=== PATIENT | male | born 1940 | race Caucasian/White ===

== ENCOUNTER 2024-10-14 23:46 | Inpatient (IN) | payer BC ==
[2024-10-15 01:27] LABS: BASO % 0.3 % (0-2.0); EOS % 1.9 % (0-4.5); HEMATOCRIT 48.2 % (35.4-49); HEMOGLOBIN 16.4 GM/dL (11.7-16.9); LYMPH % 21.8 % (8-40); MCH 28.9 pg (25.7-33.7); MCHC 33.9 g/dl (32.0-35.9); MEAN PLT VOLUME 9.2 fl (7.5-11.1); MONO % 15.1 % (3.8-10.2); NEUT % 60.9 % (42.8-82.8); PLATELET COUNT 183 10^3/uL (134-434); RBC 5.67 M/mm3 (4.00-5.60); WHITE BLOOD COUNT 7.4 K/mm3 (4.0-10.0)
[2024-10-15 01:53] LABS: POTASSIUM 4.2 mmol/L (3.5-5.1)
[2024-10-15 01:55] LABS: CALCIUM 8.9 mg/dL (8.5-10.1)
[2024-10-15 01:56] LABS: ALBUMIN 3.1 g/dl (3.4-5.0); BLOOD UREA NITROGEN 63.4 mg/dL (7-18)
[2024-10-15 01:59] LABS: CREATININE 2.3 mg/dL (0.55-1.3); INR 2.03 (0.83-1.09); PROTHROMBIN TIME (PATIENT) 22.3 SEC (9.7-13.0)
[2024-10-15 02:00] LABS: BILIRUBIN,TOTAL 0.8 mg/dL (0.2-1); TOT PROT 7.6 g/dl (6.4-8.2)
[2024-10-15 02:01] LABS: ACTIVATED PTT 34.5 SECONDS (25.2-36.5)
[2024-10-15 02:24] LABS: EPI CELLS 14 /uL (0-25.1); HYALINE CASTS 0 /uL (0-3.1); PH,URINE 5.5 (5.0-8.0); URINE APPEARANCE TURBID; URINE BACTERIA 183 /uL (0-1359); URINE BILIRUBIN NEGATIVE (NEGATIVE); URINE COLOR YELLOW; URINE GLUCOSE (UA) 3+ (NEGATIVE); URINE KETONE TRACE (NEGATIVE); URINE LEUK ESTERASE 3+ (NEGATIVE); URINE NITRITE NEGATIVE (NEGATIVE); URINE PROTEIN TRACE (NEGATIVE); URINE RBC 49 /uL (0-23.9); URINE UROBILINOGEN 0.2 mg/dL (0.2-1.0); URINE WBC 5431 /uL (0-25.8)
[2024-10-15] MEDS ORDERED: cefTRIAXone SODIUM 1 GM VIAL ONE (02:39)
[2024-10-15] MEDS: CEFTRIAXONE 1,000 MG in DEXTROSE 5%-WATER - 50 ML IVPB ONE (02:48)
[2024-10-15 03:52] LABS: YEAST FEW (NEGATIVE)
[2024-10-15 04:50] VITALS: BMI 28.9
[2024-10-15 09:16] LABS: CALCIUM 8.8 mg/dl (8.5-10.1); CREATININE 2.1 mg/dl (0.6-1.3); MAGNESIUM 2.4 mg/dL (1.8-2.4); PHOSPHOROUS 3.3 (2.5-4.9); POTASSIUM 4.2 mmol/L (3.5-5.1)
[2024-10-15 10:47] LABS: BASO % 1.5 % (0-2.0); EOS % 1.4 % (0-4.5); HEMATOCRIT 46.4 % (35.4-49); HEMOGLOBIN 15.2 GM/dL (11.7-16.9); MCH 28.3 pg (25.7-33.7); MCHC 32.7 g/dl (32.0-35.9); MEAN CELL VOLUME 86.5 fl (80-96); MEAN PLT VOLUME 9.7 fl (7.5-11.1); MONO % 14.8 % (3.8-10.2); NEUT % 60.3 % (42.8-82.8); PLATELET COUNT 185 10^3/uL (134-434); RBC 5.36 M/mm3 (4.00-5.60); RDW 13.9 % (11.9-15.9)
[2024-10-15] MEDS: CEFTRIAXONE 1 GM in DEXTROSE 5%-WATER - 50 ML IVPB SCH (11:35)
[2024-10-15] MEDS: PANTOPRAZOLE 40 MG TABLET PO SCH (13:40)
[2024-10-15] MEDS: valACYclovir HCL 500 MG TABLET (FP) PO SCH (13:40)
[2024-10-15] MEDS: DEXTROSE 5%-0.45% SALINE 1,000 ML IV SCH (13:40)
[2024-10-15] MEDS: INSULIN ASPART SLIDING SCALE (NOVOLOG) 1 VIAL SQ SCH (13:48)
[2024-10-15] MEDS: RIVAROXABAN 20 MG TABLET PO SCH (18:23)
[2024-10-15] MEDS: ATORVASTATIN CA 20 MG TABLET (FP) PO SCH (21:19)
[2024-10-15] MEDS: INSULIN (LEVEMIR) 100 UNITS/ML UNITS SQ SCH (21:19)
[2024-10-16] MEDS: DEXTROSE 5%-0.45% SALINE 1,000 ML IV SCH (03:18)
[2024-10-16] MEDS: traMADol HCL 50 MG TABLET PO ONE (04:02)
[2024-10-16] MEDS ORDERED: TAMSULOSIN HCL 0.4 MG CAP PO SCH (08:30)
[2024-10-16] MEDS: FINASTERIDE 5 MG TABLET (FP) PO SCH (09:14)
[2024-10-16] MEDS: TAMSULOSIN HCL 0.4 MG CAP PO SCH (09:15)
[2024-10-16] MEDS: amLODIPine BESYLATE 5 MG TABLET (FP) PO SCH (09:15)
[2024-10-16 10:29] LABS: ALBUMIN 3.2 g/dl (3.4-5.0); ALK PHOS 71 U/L (45-117); ANION GAP 11 mmol/L (4-13); BILIRUBIN,TOTAL 0.5 mg/dl (0.2-1); CALCIUM 8.7 mg/dl (8.5-10.1); CHLORIDE 98 mmol/L (98-107); CHOLESTEROL 131 mg/dL (50-200); CO2 25 mmol/L (21-32); CREATININE 1.9 mg/dl (0.6-1.3); GLUCOSE,RANDOM 152 mg/dl (74-106); HDL CHOLESTEROL 24 mg/dL (40-60); LDL CHOLESTEROL (ONLY DFH) 80 mg/dL (5-100); POTASSIUM 4.2 mmol/L (3.5-5.1); SGOT/AST 16 U/L (15-37); SGPT/ALT 12 U/L (7-52); SODIUM 134 mmol/L (136-145); TOT PROT 6.5 g/dl (6.4-8.2)
[2024-10-16 11:02] LABS: BASO % 1.8 % (0-2.0); EOS % 2.6 % (0-4.5); HEMATOCRIT 47.6 % (35.4-49); HEMOGLOBIN 15.7 GM/dL (11.7-16.9); LYMPH % 15.4 % (8-40); MCH 28.3 pg (25.7-33.7); MCHC 32.9 g/dl (32.0-35.9); MEAN CELL VOLUME 86.1 fl (80-96); MEAN PLT VOLUME 9.6 fl (7.5-11.1); MONO % 10.4 % (3.8-10.2); NEUT % 69.8 % (42.8-82.8); PLATELET COUNT 191 10^3/uL (134-434); RBC 5.52 M/mm3 (4.00-5.60); RDW 13.9 % (11.9-15.9); WHITE BLOOD COUNT 6.8 K/mm3 (4.0-10.0)
[2024-10-16] MEDS: valACYclovir HCL 500 MG TABLET (FP) PO SCH (14:15)
[2024-10-16] MEDS: INSULIN (LEVEMIR) 100 UNITS/ML UNITS SQ SCH (21:25)
[2024-10-16] MEDS: traMADol HCL 50 MG TABLET PO PRN (21:26)
[2024-10-17] MEDS: ACETAMINOPHEN 325 MG TABLET (FP) PO PRN (06:53)
[2024-10-17 07:55] LABS: CALCIUM 8.4 mg/dl (8.5-10.1); POTASSIUM 4.6 mmol/L (3.5-5.1)
[2024-10-17] MEDS: valACYclovir HCL 500 MG TABLET (FP) PO SCH (09:44)
[2024-10-17] MEDS: INSULIN (LEVEMIR) 100 UNITS/ML UNITS SQ ONE (18:29)
[2024-10-17] MEDS ORDERED: INSULIN ASPART SLIDING SCALE (NOVOLOG) 1 VIAL SQ ONE (22:03)
[2024-10-17] MEDS: INSULIN (LEVEMIR) 100 UNITS/ML UNITS SQ SCH (22:14)
[2024-10-18] MEDS ORDERED: INSULIN ASPART SLIDING SCALE (NOVOLOG) 1 VIAL SQ ONE (06:20)
[2024-10-18] MEDS ORDERED: INSULIN (LEVEMIR) 100 UNITS/ML UNITS SQ SCH (06:59)
[2024-10-18] MEDS: INSULIN (LEVEMIR) 100 UNITS/ML UNITS SQ SCH (08:13)
[2024-10-18 08:47] LABS: CALCIUM 8.4 mg/dl (8.5-10.1); CREATININE 1.7 mg/dl (0.6-1.3); POTASSIUM 4.7 mmol/L (3.5-5.1)
[2024-10-18 11:03] LABS: ABSOLUTE IMMATURE GRANULOCYTES 0.03 x10^3/uL (0.0-0.031); BASOPHILS # 0.03 x10^3/uL (0.01-0.08); EOSINOPHIL % 1.2 % (0.8-7.0); EOSINOPHILS # 0.08 x10^3/uL (0.04-0.54); HEMATOCRIT 46.3 % (40.1-51.0); HEMOGLOBIN 15.5 g/dL (13.7-17.5); MCHC 33.5 g/dl (32.3-36.5); MEAN CELL VOLUME 86.1 fl (79.0-92.2); MEAN PLT VOLUME 11.3 fl (9.4-12.4); MONOCYTE # 0.65 x10^3/uL (0.30-0.82); MONOCYTE % 9.4 % (5.3-12.2); PLATELET COUNT # 216 x10^3/uL (163-337); RDW 12.7 % (12.6-16.6)
[2024-10-18] MEDS: INSULIN ASPART SLIDING SCALE (NOVOLOG) 1 VIAL SQ SCH (17:59)
[2024-10-18] MEDS: DEXTROSE 5%-0.45% SALINE 1,000 ML IV SCH (19:15)
[2024-10-19 08:21] LABS: CALCIUM 8.6 mg/dl (8.5-10.1); CREATININE 1.6 mg/dl (0.6-1.3); POTASSIUM 4.2 mmol/L (3.5-5.1)
[2024-10-20 07:41] LABS: ABSOLUTE IMMATURE GRANULOCYTES 0.03 x10^3/uL (0.0-0.031); BASOPHILS # 0.03 x10^3/uL (0.01-0.08); EOSINOPHIL % 1.3 % (0.8-7.0); EOSINOPHILS # 0.12 x10^3/uL (0.04-0.54); HEMATOCRIT 42.9 % (40.1-51.0); HEMOGLOBIN 14.3 g/dL (13.7-17.5); MCHC 33.3 g/dl (32.3-36.5); MEAN CELL VOLUME 85.8 fl (79.0-92.2); MEAN PLT VOLUME 9.9 fl (9.4-12.4); MONOCYTE # 0.89 x10^3/uL (0.30-0.82); MONOCYTE % 9.7 % (5.3-12.2); PLATELET COUNT # 253 x10^3/uL (163-337); RDW 13.2 % (12.6-16.6)
[2024-10-20 08:04] LABS: CALCIUM 8.7 mg/dl (8.5-10.1); CREATININE 1.5 mg/dl (0.6-1.3); POTASSIUM 4.7 mmol/L (3.5-5.1)
[2024-10-20 10:45] VITALS: BP 120/61; PULSE 97; RESP 17; TEMP 97.7
== END 2024-10-20 11:46 | disposition home or self-care (01) | DRG 683 ==
LOC: FER 23:46 → FM/S 10-15 03:00
PROVIDERS: ADMIT Internal Medicine; ATTEND Internal Medicine
DX: N17.9 Acute kidney failure, unspecified (principal); I13.0 Hypertensive heart and chronic kidney disease with heart failure and stage 1 through stage 4 chronic kidney disease, or unspecified chronic kidney disease; N39.0 Urinary tract infection, site not specified; I10 Essential (primary) hypertension; E11.9 Type 2 diabetes mellitus without complications; F03.90 Unspecified dementia, unspecified severity, without behavioral disturbance, psychotic disturbance, mood disturbance, and anxiety; R55 Syncope and collapse; N40.0 Benign prostatic hyperplasia without lower urinary tract symptoms; E86.0 Dehydration; L89.151 Pressure ulcer of sacral region, stage 1; I50.9 Heart failure, unspecified; B02.9 Zoster without complications; N18.9 Chronic kidney disease, unspecified; W19.XXXA Unspecified fall, initial encounter; Y93.89 Activity, other specified; Y92.008 Other place in unspecified non-institutional (private) residence as the place of occurrence of the external cause; Y99.8 Other external cause status; E11.65 Type 2 diabetes mellitus with hyperglycemia
CPT/HCPCS: 36415; 70450-TC; 71045-TC-FY; 72100-TC-FY; 72125-TC; 76775-TC; 76856-TC; 80048; 80053; 80061; 81003; 81015; 82550; 82962; 83036; 83735; 83880; 84100; 84439; 84443; 84484; 85025; 85610; 85730; 86850; 86900; 86901; 87086; 93005; 93306-TC; 93880-TC; 97116-GP; 97162-GP; 99285-25

== ENCOUNTER 2025-05-19 12:24 | Inpatient (IN) | payer BC, OTHER ==
[2025-05-19 13:29] LABS: ABSOLUTE IMMATURE GRANULOCYTES 0.02 x10^3/uL (0.0-0.031); BASOPHILS # 0.03 x10^3/uL (0.01-0.08); EOSINOPHIL % 0.8 % (0.8-7.0); EOSINOPHILS # 0.07 x10^3/uL (0.04-0.54); MCHC 30.6 g/dl (32.3-36.5); MEAN CELL VOLUME 92.3 fl (79.0-92.2); MEAN PLT VOLUME 11.0 fl (9.4-12.4); MONOCYTE # 0.82 x10^3/uL (0.30-0.82); MONOCYTE % 9.2 % (5.3-12.2); RDW 14.0 % (12.6-16.6)
[2025-05-19 13:56] LABS: ALK PHOS 70.0 U/L (45-117); CO2 25.0 mmol/L (21-32); CREATININE 1.8 mg/dl (0.6-1.3); GLUCOSE,RANDOM 181.0 mg/dl (74-106); SGOT/AST 23.0 U/L (15-37); SGPT/ALT 19.0 U/L (7-52); TOT PROT 7.1 g/dl (6.4-8.2)
[2025-05-19 14:24] LABS: N-TERMINAL BNP 4422.4 pg/mL (0-299.9)
[2025-05-19] MEDS ORDERED: FUROSEMIDE 40 MG/4 ML INJECTABLE VIAL ONE (14:36)
[2025-05-19] MEDS: FUROSEMIDE 40 MG/4 ML INJECTABLE VIAL IVPUSH ONE (14:42)
[2025-05-19 15:53] LABS: HIV INTERPRETATION NEGATIVE (NEGATIVE)
[2025-05-19 15:55] LABS: HCV DIAGNOSTIC IN-HOUSE W/RFLX NON-REACTIVE (NONREACTIVE)
[2025-05-19] MEDS: GABAPENTIN 300 MG CAPSULE PO SCH (16:35)
[2025-05-19] MEDS: INSULIN ASPART SLIDING SCALE (NOVOLOG) 1 VIAL SQ SCH (16:35)
[2025-05-19] MEDS: PANTOPRAZOLE 40 MG TABLET PO SCH (16:45)
[2025-05-19] MEDS: ASPIRIN 81 MG CHEWABLE TABLETS PO ONE (17:54)
[2025-05-19] MEDS: RIVAROXABAN 20 MG TABLET PO SCH (18:05)
[2025-05-19] MEDS: DOCUSATE SODIUM 100 MG CAPSULE (FP) PO SCH (19:57)
[2025-05-19] MEDS: POLYETHYLENE GLYCOL (HEALTHYLAX) 3350 17 GM PACKET PO SCH (19:58)
[2025-05-19 20:24] VITALS: BMI 37.2
[2025-05-19] MEDS: INSULIN GLARGINE (LANTUS) 100 UNITS/ML UNITS SQ SCH (21:40)
[2025-05-19] MEDS: SILVER SULFADIAZINE 1% TOP CREAM 50 GM JAR TP SCH (21:41)
[2025-05-19] MEDS ORDERED: HEPARIN NA (PORCINE) 5,000 UNITS/ML 1ML VIAL SQ SCH (22:00)
[2025-05-20 09:07] LABS: ABSOLUTE IMMATURE GRANULOCYTES 0.03 x10^3/uL (0.0-0.031); BASOPHILS # 0.03 x10^3/uL (0.01-0.08); EOSINOPHIL % 2.0 % (0.8-7.0); EOSINOPHILS # 0.18 x10^3/uL (0.04-0.54); MCHC 29.6 g/dl (32.3-36.5); MEAN CELL VOLUME 95.3 fl (79.0-92.2); MEAN PLT VOLUME 10.5 fl (9.4-12.4); MONOCYTE # 0.86 x10^3/uL (0.30-0.82); MONOCYTE % 9.7 % (5.3-12.2); RDW 14.1 % (12.6-16.6)
[2025-05-20] MEDS: TAMSULOSIN HCL 0.4 MG CAP PO SCH (09:28)
[2025-05-20] MEDS: FUROSEMIDE 40 MG/4 ML INJECTABLE VIAL IVPUSH SCH (09:29)
[2025-05-20] MEDS: ASPIRIN COATED 81 MG TABLET.EC PO SCH (09:29)
[2025-05-20] MEDS: FINASTERIDE 5 MG TABLET (FP) PO SCH (09:29)
[2025-05-20 10:23] LABS: GLUCOSE,RANDOM 103.0 mg/dL (74-106)
[2025-05-20 10:25] LABS: CO2 28.0 mmol/L (21-32)
[2025-05-20 10:29] LABS: CREATININE 1.91 mg/dL (0.55-1.3)
[2025-05-21] MEDS: ALBUTEROL SO4 2.5/IPRATROPIUM 0.5 INH SOL 3 ML VIAL.NEB. NEB PRN (08:30)
[2025-05-21 09:21] LABS: ARTERIAL BLD GAS O2 SATURATION 96.9 % (95-98); ARTERIAL BLOOD GAS BASE EXCESS -0.7 mmol/L (-2-2); ARTERIAL BLOOD GAS PO2 112.0 mmHg (80-100); BG HCT 46.0 % (35.4-49); O2 CONTENT 2.15 % vol
[2025-05-21 09:29] LABS: ALLENS TEST POSITIVE
[2025-05-21 09:32] LABS: ARTERIAL BLOOD GAS PCO2 78.10 mmHg (35-45)
[2025-05-21] MEDS ORDERED: MUPIROCIN 2% TOPICAL OINTMENT FOR DECOLONIZATION NS SCH ×2 (10:00→22:00)
[2025-05-21 12:57] LABS: ABSOLUTE IMMATURE GRANULOCYTES 0.05 x10^3/uL (0.0-0.031); BASOPHILS # 0.02 x10^3/uL (0.01-0.08); EOSINOPHIL % 0.2 % (0.8-7.0); EOSINOPHILS # 0.02 x10^3/uL (0.04-0.54); MCHC 29.1 g/dl (32.3-36.5); MEAN CELL VOLUME 98.1 fl (79.0-92.2); MEAN PLT VOLUME 11.3 fl (9.4-12.4); MONOCYTE # 1.16 x10^3/uL (0.30-0.82); MONOCYTE % 11.3 % (5.3-12.2); RDW 14.0 % (12.6-16.6)
[2025-05-21 13:15] LABS: GLUCOSE,RANDOM 113.0 mg/dL (74-106)
[2025-05-21 13:16] LABS: CO2 29.0 mmol/L (21-32)
[2025-05-21 13:20] LABS: CREATININE 2.22 mg/dL (0.55-1.3)
[2025-05-21] MEDS ORDERED: SODIUM ZIRCONIUM CYCLOSILICATE (LOKELMA) 5 GM PACKET PO SCH (14:00)
[2025-05-21] MEDS: SODIUM ZIRCONIUM CYCLOSILICATE (LOKELMA) 5 GM PACKET PO SCH (14:16)
[2025-05-21 14:49] LABS: ARTERIAL BLD GAS O2 SATURATION 94.3 % (95-98); ARTERIAL BLOOD GAS BASE EXCESS 1.5 mmol/L (-2-2); ARTERIAL BLOOD GAS PCO2 61.40 mmHg (35-45); ARTERIAL BLOOD GAS PO2 79.6 mmHg (80-100); BG HCT 46.0 % (35.4-49); O2 CONTENT 2.07 % vol
[2025-05-21 14:50] LABS: ALLENS TEST POSITIVE
[2025-05-21 14:51] LABS: VENT MODE S/T; VENT RATE 12
[2025-05-21] MEDS ORDERED: ALBUTEROL SO4 0.5 % INH SOLN 2.5 MG/0.5 ML VIAL.NEB. NEB ONE (17:26)
[2025-05-21] MEDS: DEXTROSE 50%-WATER 25 GM/50 ML DISP.SYRIN IVPUSH ONE (17:59)
[2025-05-21] MEDS: CALCIUM GLUCONATE 10% - 1,000 MG/10 ML VIAL IVPUSH ONE (17:59)
[2025-05-21] MEDS ORDERED: PIPERACILLIN/TAZOB 2.25 GM 2.25 GM in DEXTROSE 5%-WATER - 50 ML IVPB SCH (18:45)
[2025-05-21] MEDS: ALBUTEROL SO4 0.5 % INH SOLN 2.5 MG/0.5 ML VIAL.NEB. NEB ONE ×2 (18:59→19:00)
[2025-05-21] MEDS: PIPERACILLIN/TAZOB 2.25 GM 2.25 GM in DEXTROSE 5%-WATER - 50 ML IVPB SCH (19:14)
[2025-05-21] MEDS: DEXTROSE 10%-WATER - 1,000 ML IV SCH ×2 (19:52→21:36)
[2025-05-21] MEDS ORDERED: SUGAMMADEX SODIUM 200 MG/2 ML VIAL ONE (20:17)
[2025-05-21] MEDS ORDERED: ROCURONIUM BROMIDE 50 MG/5 ML SYRINGE ONE ×2 (20:17→20:18)
[2025-05-21] MEDS ORDERED: MIDAZOLAM HCL 2 MG/2 ML SINGLE DOSE VIAL ONE (20:39)
[2025-05-21] MEDS ORDERED: FENTANYL NS IVPB 500 MCG/100 ML BAG IVPB ONE (21:14)
[2025-05-21] MEDS ORDERED: FENTANYL IVPB 500 MCG/100 ML BAG IVPB SCH (21:15)
[2025-05-21] MEDS: FENTANYL NS IVPB 500 MCG/100 ML BAG IVPB SCH (21:30)
[2025-05-21 21:36] LABS: ARTERIAL BLD GAS O2 SATURATION 94.1 % (95-98); ARTERIAL BLOOD GAS BASE EXCESS 2.3 mmol/L (-2-2); ARTERIAL BLOOD GAS PCO2 47.60 mmHg (35-45); ARTERIAL BLOOD GAS PO2 71.5 mmHg (80-100); BG HCT 42.0 % (35.4-49); O2 CONTENT 1.88 % vol
[2025-05-21] MEDS: CHLORHEXIDINE GLUCONATE 4% CLEANSER FOR DECOLONIZATION TP SCH (21:36)
[2025-05-21] MEDS: FUROSEMIDE 40 MG/4 ML INJECTABLE VIAL IVPUSH ONE ×2 (21:38→22:48)
[2025-05-21 21:39] LABS: ABSOLUTE IMMATURE GRANULOCYTES 0.04 x10^3/uL (0.0-0.031); BASOPHILS # 0.03 x10^3/uL (0.01-0.08); EOSINOPHIL % 0.5 % (0.8-7.0); EOSINOPHILS # 0.05 x10^3/uL (0.04-0.54); MCHC 30.5 g/dl (32.3-36.5); MEAN CELL VOLUME 93.9 fl (79.0-92.2); MEAN PLT VOLUME 10.0 fl (9.4-12.4); MONOCYTE # 1.13 x10^3/uL (0.30-0.82); MONOCYTE % 11.8 % (5.3-12.2); RDW 13.7 % (12.6-16.6)
[2025-05-21 21:40] LABS: VENT MODE A/C; VENT RATE 12
[2025-05-21] MEDS: NOREPINEPHRINE BITARTRATE 4,000 MCG in DEXTROSE 5%-WATER - 496 ML IV SCH (22:00)
[2025-05-21] MEDS ORDERED: CHLORHEXIDINE GLUCONATE 4% CLEANSER FOR DECOLONIZATION TP SCH ×2 (22:00)
[2025-05-21 22:03] LABS: GLUCOSE,RANDOM 162.0 mg/dL (74-106)
[2025-05-21 22:04] LABS: TOT PROT 6.2 g/dl (6.4-8.2)
[2025-05-21 22:05] LABS: CO2 25.0 mmol/L (21-32)
[2025-05-21 22:06] LABS: ALK PHOS 75.0 U/L (40-150)
[2025-05-21 22:09] LABS: CREATININE 2.37 mg/dL (0.55-1.3); SGOT/AST 25.0 U/L (5-34); SGPT/ALT 27.0 U/L (0-55)
[2025-05-21] MEDS: FENTANYL CITRATE/PF 50 MCG/ML VIAL IVPUSH ONE (22:12)
[2025-05-21] MEDS: MUPIROCIN 2% TOPICAL OINTMENT FOR DECOLONIZATION NS SCH (22:17)
[2025-05-21] MEDS: DEXMEDETOMIDINE PREMIX 400 MCG/100 ML BAG IVPB SCH (22:18)
[2025-05-22] MEDS: NOREPINEPHRINE BITARTRATE/D5W 8 MG/250 ML BAG IVPB SCH (00:53)
[2025-05-22] MEDS ORDERED: EPINEPHrine 1:10,000 (P-F SYR) 1 MG/10 ML DISP.SYRIN ONE ×2 (02:49→03:23)
[2025-05-22] MEDS ORDERED: AMIODARONE IN DEXTROSE,ISO-OSM 360 MG/200 ML BAG ONE (02:53)
[2025-05-22] MEDS: AMIODARONE IN DEXTROSE,ISO-OSM 360 MG/200 ML BAG IV SCH ×2 (03:00→09:18)
[2025-05-22] MEDS ORDERED: EPINEPHrine 1:1000 P/F - 1 MG/ML AMP ONE (03:02)
[2025-05-22 03:08] LABS: ABSOLUTE IMMATURE GRANULOCYTES 0.25 x10^3/uL (0.0-0.031); ARTERIAL BLD GAS O2 SATURATION 87.3 % (95-98); ARTERIAL BLOOD GAS BASE EXCESS -0.4 mmol/L (-2-2); ARTERIAL BLOOD GAS PCO2 50.60 mmHg (35-45); ARTERIAL BLOOD GAS PO2 56.6 mmHg (80-100); BASOPHILS # 0.05 x10^3/uL (0.01-0.08); BG HCT 44.0 % (35.4-49); EOSINOPHIL % 0.5 % (0.8-7.0); EOSINOPHILS # 0.07 x10^3/uL (0.04-0.54); MCHC 30.2 g/dl (32.3-36.5); MEAN CELL VOLUME 94.6 fl (79.0-92.2); MEAN PLT VOLUME 10.4 fl (9.4-12.4); MONOCYTE # 1.12 x10^3/uL (0.30-0.82); MONOCYTE % 8.7 % (5.3-12.2); O2 CONTENT 1.84 % vol; RDW 13.9 % (12.6-16.6)
[2025-05-22 03:09] LABS: VENT RATE 12
[2025-05-22 03:26] LABS: GLUCOSE,RANDOM 207 mg/dL (74-106); TOT PROT 6.2 g/dl (6.4-8.2)
[2025-05-22 03:27] LABS: CO2 27 mmol/L (21-32)
[2025-05-22 03:29] LABS: ALK PHOS 84 U/L (40-150)
[2025-05-22 03:31] LABS: INR 1.37 (0.83-1.09); PROTHROMBIN TIME (PATIENT) 14.9 SEC (9.7-13.0); SGOT/AST 46 U/L (5-34); SGPT/ALT 46 U/L (0-55)
[2025-05-22 03:32] LABS: CREATININE 2.48 mg/dL (0.55-1.3)
[2025-05-22 03:34] LABS: ACTIVATED PTT 27.2 SECONDS (25.2-36.5)
[2025-05-22] MEDS: EPINEPHrine 1:1,000 1,000 MCG in DEXTROSE 5%-WATER - 249 ML IVPB SCH (04:06)
[2025-05-22 04:14] LABS: EPI CELLS 27 /uL (0-25.1); HYALINE CASTS 10 /uL (0-3.1); URINE APPEARANCE TURBID; URINE BACTERIA 3 /uL (0-1359); URINE BILIRUBIN 1+ (NEGATIVE); URINE COLOR RED; URINE GLUCOSE (UA) 2+ (NEGATIVE); URINE KETONE NEGATIVE (NEGATIVE); URINE LEUK ESTERASE 3+ (NEGATIVE); URINE NITRITE NEGATIVE (NEGATIVE); URINE PROTEIN 2+ (NEGATIVE); URINE UROBILINOGEN 1.0 mg/dL (0.2-1.0)
[2025-05-22 04:30] LABS: LACTIC ACID 5.0 mmol/L (0.4-2.0)
[2025-05-22] MEDS: LACTATED RINGERS SOLUTION 1,000 ML/1,000 ML INFUS.BAG IV STA (05:51)
[2025-05-22 06:04] LABS: ARTERIAL BLD GAS O2 SATURATION 86.1 % (95-98); ARTERIAL BLOOD GAS BASE EXCESS -4.3 mmol/L (-2-2); ARTERIAL BLOOD GAS PCO2 47.30 mmHg (35-45); ARTERIAL BLOOD GAS PO2 56.5 mmHg (80-100); BG HCT 47.0 % (35.4-49)
[2025-05-22 06:06] LABS: VENT MODE A/C; VENT RATE 15
[2025-05-22] MEDS: LIDOCAINE 0.4% PREMIX IVPB 2,000 MG/500 ML INFUS..BTL IV SCH (07:52)
[2025-05-22 07:54] LABS: URINE RBC 36092.5 /uL (0-23.9); YEAST NONE SEEN (NEGATIVE)
[2025-05-22 08:03] VITALS: PULSE 89
[2025-05-22 08:16] LABS: MCHC 30.1 g/dl (32.3-36.5); MEAN CELL VOLUME 93.9 fl (79.0-92.2); MEAN PLT VOLUME 10.8 fl (9.4-12.4); RDW 14.0 % (12.6-16.6)
[2025-05-22 08:34] LABS: GLUCOSE,RANDOM 278 mg/dL (74-106)
[2025-05-22 08:35] LABS: TOT PROT 8.3 g/dl (6.4-8.2)
[2025-05-22 08:36] LABS: CO2 25 mmol/L (21-32)
[2025-05-22 08:37] VITALS: BP 128/66; TEMP 97.2
[2025-05-22 08:38] LABS: ALK PHOS 82 U/L (40-150)
[2025-05-22 08:40] LABS: CREATININE 2.34 mg/dL (0.55-1.3); SGOT/AST 209 U/L (5-34); SGPT/ALT 130 U/L (0-55)
[2025-05-22] MEDS ORDERED: MORPHINE SULFATE/0.9% NACL/PF 100 MG/100 ML BAG IVPB SCH (10:15)
[2025-05-22 10:18] LABS: GLUCOSE,RANDOM 357.0 mg/dL (74-106)
[2025-05-22 10:19] LABS: CO2 25.0 mmol/L (21-32)
[2025-05-22 10:23] LABS: CREATININE 2.57 mg/dL (0.55-1.3)
[2025-05-22] MEDS: PANTOPRAZOLE SODIUM 40 MG VIAL IVPUSH SCH (10:32)
[2025-05-22 11:06] LABS: MCHC 30.4 g/dl (32.3-36.5); MEAN CELL VOLUME 92.5 fl (79.0-92.2); MEAN PLT VOLUME 11.3 fl (9.4-12.4); RDW 13.9 % (12.6-16.6)
[2025-05-22 11:10] LABS: INR 1.66 (0.83-1.09); PROTHROMBIN TIME (PATIENT) 18.3 SEC (9.7-13.0)
[2025-05-22 11:13] LABS: ACTIVATED PTT 25.4 SECONDS (25.2-36.5)
[2025-05-22 11:26] LABS: GLUCOSE,RANDOM 367.0 mg/dL (74-106); TOT PROT 5.5 g/dl (6.4-8.2)
[2025-05-22 11:27] LABS: CO2 37.0 mmol/L (21-32)
[2025-05-22 11:29] LABS: ALK PHOS 76.0 U/L (40-150)
[2025-05-22 11:31] LABS: SGPT/ALT 96.0 U/L (0-55)
[2025-05-22 11:32] LABS: CREATININE 2.49 mg/dL (0.55-1.3); SGOT/AST 91.0 U/L (5-34)
[2025-05-22 11:41] VITALS: RESP 15
== END 2025-05-22 14:22 | disposition expired | DRG 208 ==
LOC: FER 12:24 → J6W TELE 15:45 → JICU 05-21 18:00
PROVIDERS: ADMIT Internal Medicine; ATTEND Internal Medicine Pulmonary Disease
PROC: 0T7D8ZZ Dilation of Urethra, Via Natural or Artificial Opening Endoscopic (ICD-10-PCS; 2025-05-21)
PROC: 4A133B1 Monitoring of Arterial Pressure, Peripheral, Percutaneous Approach (ICD-10-PCS; 2025-05-21)
PROC: 4A133J1 Monitoring of Arterial Pulse, Peripheral, Percutaneous Approach (ICD-10-PCS; 2025-05-21)
PROC: 5A1945Z Respiratory Ventilation, 24-96 Consecutive Hours (ICD-10-PCS; principal; 2025-05-22)
PROC: 5A12012 Performance of Cardiac Output, Single, Manual (ICD-10-PCS; 2025-05-22)
PROC: 05HN33Z Insertion of Infusion Device into Left Internal Jugular Vein, Percutaneous Approach (ICD-10-PCS; 2025-05-22)
PROC: B544ZZA Ultrasonography of Left Jugular Veins, Guidance (ICD-10-PCS; 2025-05-22)
DX: J96.02 Acute respiratory failure with hypercapnia (principal); I50.43 Acute on chronic combined systolic (congestive) and diastolic (congestive) heart failure; J18.9 Pneumonia, unspecified organism; N17.9 Acute kidney failure, unspecified; I13.0 Hypertensive heart and chronic kidney disease with heart failure and stage 1 through stage 4 chronic kidney disease, or unspecified chronic kidney disease; G93.1 Anoxic brain damage, not elsewhere classified; R57.0 Cardiogenic shock; I49.01 Ventricular fibrillation; J96.01 Acute respiratory failure with hypoxia; E11.40 Type 2 diabetes mellitus with diabetic neuropathy, unspecified; F03.90 Unspecified dementia, unspecified severity, without behavioral disturbance, psychotic disturbance, mood disturbance, and anxiety; E11.22 Type 2 diabetes mellitus with diabetic chronic kidney disease; E11.649 Type 2 diabetes mellitus with hypoglycemia without coma; N18.9 Chronic kidney disease, unspecified; E83.39 Other disorders of phosphorus metabolism; R33.9 Retention of urine, unspecified; N35.919 Unspecified urethral stricture, male, unspecified site; I25.10 Atherosclerotic heart disease of native coronary artery without angina pectoris; E78.5 Hyperlipidemia, unspecified; I48.0 Paroxysmal atrial fibrillation; E83.41 Hypermagnesemia; M79.3 Panniculitis, unspecified; M47.9 Spondylosis, unspecified; E87.5 Hyperkalemia; N40.1 Benign prostatic hyperplasia with lower urinary tract symptoms; I46.2 Cardiac arrest due to underlying cardiac condition
CPT/HCPCS: 36415; 36600; 71045-TC-FY; 72128-TC; 72131-TC; 74176-TC; 76000-TC-FY; 80048; 80053; 81003; 82803; 82962; 83036; 83605; 83735; 83880; 84100; 84153; 84443; 84484; 85025; 85610; 85730; 86803; 86850; 86900; 86901; 87086; 87389; 87637-QW; 93005; 93010; 93306-TC; 94002; 94640; 94660; 99285-25; J1250; J3490